=== PATIENT | female | born 1990 | race Caucasian/White ===

== ENCOUNTER 2016-12-18 01:33 | Inpatient (IN) | payer OTHER ==
[~2016-12-18] VITALS: Ht 152.4 cm; Wt 55.6 kg
[~2016-12-18 01:33] MED LIST: FIORICET PO; PANT40TA3 PO; ZOF8 PO
[2016-12-18 03:05] VITALS: BP 113/57; PULSE 84; RESP 18
[2016-12-18 03:14] VITALS: BP 113/57; RESP 18
[2016-12-18] MEDS ORDERED: morphine 10 MG INJ IM PRN ×2 (03:30→11:30)
[2016-12-18] MEDS ORDERED: ACETAMINOPHEN 325 MG TAB PO PRN (03:30)
[2016-12-18] MEDS ORDERED: ONDANSETRON 4 MG INJ IV PRN (03:30)
[2016-12-18 05:08] LABS: ADD SCAN DIFF NO
[2016-12-18] MEDS: SOD CHLORIDE 0.9% 1,000 ML IV SCH ×3 (05:08→23:30)
[2016-12-18 05:20] LABS: BASOPHILS % 0.2 % (0.0-2.0); EOSINOPHILS % 0.2 % (0.0-7.0); HEMOGLOBIN 11.8 g/dl (12.0-16.0); LYMPHOCYTES # 2.4 10^3/ul (0.8-2.9); LYMPHOCYTES % 14.5 % (15.0-51.0); MEAN CORPUSCULAR HEMOGLOBIN 30.4 pg (29.0-33.0); MEAN CORPUSCULAR HGB CONC 32.8 g/dl (32.0-37.0); MEAN CORPUSCULAR VOLUME 92.8 fl (82.0-101.0); MEAN PLATELET VOLUME 9.8 fl (7.4-10.4); MONOCYTE # 0.7 10^3/ul (0.3-0.9); MONOCYTES % 4.1 % (0.0-11.0); NEUTROPHILS % 80.5 % (39.0-77.0); PLATELET COUNT 295 10^3/UL (140-415); RED BLOOD COUNT 3.88 10^6/ul (4.20-5.40); RED CELL DISTRIBUTION WIDTH 11.9 % (11.5-14.5); WHITE BLOOD COUNT 16.2 10^3/ul (4.8-10.8)
[2016-12-18 05:21] LABS: ALBUMIN 3.4 g/dl (3.3-4.9)
[2016-12-18 05:22] LABS: POTASSIUM 3.8 mmol/L (3.5-5.1)
[2016-12-18 05:24] LABS: BILIRUBIN,INDIRECT 0.4 mg/dl (0-1.1); BILIRUBIN,TOTAL 0.4 mg/dl (0.2-1.3); CREATININE 0.53 mg/dl (0.44-1.00)
[2016-12-18 05:25] LABS: ALBUMIN/GLOBULIN RATIO 1.06; CALCIUM 8.3 mg/dl (8.4-10.2); PHOSPHORUS 3.7 mg/dl (2.5-4.9); TOTAL PROTEIN 6.6 g/dl (6.1-8.1)
[2016-12-18 05:26] LABS: MAGNESIUM 1.9 mg/dl (1.7-2.5)
[2016-12-18 07:00] VITALS: BP 150/78; RESP 20
--- NOTE | 2016-12-18 08:46 | HP ---
DATE OF ADMISSION: 12/18/2016 TIME SEEN: 5 a.m. CHIEF COMPLAINT: Abdominal pain and bright red blood per rectum. HISTORY OF PRESENT ILLNESS: The patient is a 26-year-old female with a history of possible asthma a nd migraine who was transferred from [place] because of insurance reasons after she presented with ab dominal pain and bright red blood per rectum. She said rectal bleeding has been going on for 1 jim h and mainly is noticed when she wipes, but at times she did actually see some dripping of blood. S he is not quite sure whether or not she has hemorrhoids, but she said it does hurt when she actually wipes. As far as her abdominal pain is concerned, she stated it started while she was at work yest erday around 6 p.m. and it is diffuse with radiation to her right flank area. However, when she howard ched her left side of her flank area, it hurt as well. She denied any fever, chills, nausea, vomiti ng, chest pain or shortness of breath. She states that she has a strong family history of a differe nt types of cancer including a cousin in her 20s with breast cancer, another cousin 9-year-old with leukemia, her aunt in her 30s with colon cancer and so on. When the patient was at [place] they did do a guaiac which was negative. She had a white count of 18 ,000 and her urinalysis was consistent with a UTI and she was subsequently diagnosed with pyelonephr itis. Imaging was done and it did not show any kidney stones. REVIEW OF SYSTEMS: A 12-point review of systems was performed and it was negative except as mentione d in HPI. PAST MEDICAL HISTORY: As per HPI. PAST SURGICAL HISTORY: . SOCIAL HISTORY: Denied a history of tobacco, alcohol or illicit drug use. ALLERGIES: NO KNOWN DRUG ALLERGIES. HOME MEDICATIONS: 1. Fioricet. 2. Zofran. 3. Protonix. PHYSICAL EXAMINATION: VITAL SIGNS: Stable. GENERAL: No acute distress. She actually looks very comfortable and answering questions appropriat yasmeen. HEENT: No obvious head deformity. Pupils equal, round and reactive to light. Extraocular muscles in tact. CARDIOVASCULAR: Regular rate and rhythm. No extra sounds. LUNGS: Clear. ABDOMEN: Soft. There is some tenderness in the left flank area with no guarding. Her abdomen is s oft. No rigidity was positive bowel sounds. EXTREMITIES: No edema. NEUROLOGIC: No focal deficits. LABORATORY DATA: Here shows a WBC of 16,000 and hemoglobin 11.8. Otherwise, CBC and CMP are within normal limits. Urinalysis, urine culture as well as blood culture are currently pending. IMPRESSION: 1. Pyelonephritis. 2. Leukocytosis, secondary to above. 3. Bright red blood per rectum. 4. Normocytic anemia, likely secondary to above. PLAN: She will be started on antibiotics. We will follow up on the urine culture and blood culture results. We will provide pain medication as needed. For her rectal bleeding we will consult GI. We will check ferritin and iron profile to see if she is iron deficient. Further workup and management per clinical course. Dictated By: EVARISTO HEART/BLUE Conf#: [id number] DID#: [id number]
[2016-12-18] MEDS: CEFEPIME 1GM/50 ML (PMX) 50 ML IVPB SCH ×2 (09:42→20:52)
--- NOTE | 2016-12-18 14:16 | CONS ---
Date/Time of Note Date/Time of Note DATE: 12/18/16 TIME: 13:57 Assessment/Plan Assessment/Plan Additional Assessment/Plan Assessment * Anemia Normocytic Hematochezia Hemorrhoids vs tumors vs Diverticulosis * Family history of colon cancer * Acute pyelonephritis * Plan * Colonoscopy risks and benefit explained to the patient ,agreed with planned procedure * Continue present management Consultation Date/Type/Reason Admit Date/Time Dec 18, 2016 at 02:51 Date of Consultation: Dec 18, 2016 Type of Consultation: Gastroenterology Reason for Consultation Hematochezia Referring Provider: EVARISTO CUEVAS MD Hx of Present Illness 26 year old complaining of hematochezia and right lower quadrant pain.Past medical history revealed Asthma and migraine.Condition started 2months prior to consult as hematochezia 1/2 tsp per bout with constipation but denies any nausea ,vomiting nor abdominal pain.condition continued on and off until 2 weeks prior to consult hematochezia become worse occurring everyday 1 tsp/bout .No consultation nor medications taken until 1 day prior to consult,she complained sudden onset right lower quadrant pain radiating to the back with associated dysuria.Patient was subsequently rushed to [facility] where a CT scan revealed a dilated right kidney and ureter and urinalysis showed pus cells.She was subsequently transferred because of insurance issues. On the floor ,no episode of hematochezia,denies abdominal pain,wbc is elevated at 16.2 ,predominant neutrophilia,hemoglobin 11.8 Patient claims also a family hx of colon cancer,but no colonoscopy performed Constitutional: improved, no complaints Eyes: no complaints ENT: no complaints Respiratory: no complaints Cardiovascular: no complaints Gastrointestinal: blood, constipation, pain, passing stool Genitourinary: flank pain Musculoskeletal: no complaints Skin: no complaints Neurologic: no complaints Endocrine: no complaints Lymphatic: no complaints Psychological: nl mood/affect, no complaints Immunologic: no complaints Past Medical History Medical History: other (asthma,migraine) Past Surgical History Past Surgical Hx: cholecystectomy Family History Significant Family History: other (colon cancer) Social History Alcohol Use: rarely Smoking Status: Never smoker Drug Use: none Exam/Review of Systems Vital Signs Vitals Vital Signs Date Time Temp Pulse Resp B/P Pulse Ox O2 Delivery O2 Flow Rate FiO2 12/18/16 07:00 97.7 62 20 150/78 95 12/18/16 03:05 Room Air Exam Constitutional: alert, oriented, well developed Psych: nl mood/affect, no complaints Head: atraumatic, normocephalic Eyes: PERRL, nl conjunctiva, nl lids, nl sclera ENMT: nl external ears & nose Neck: non-tender, supple Respiratory: clear to auscultation, normal air movement Cardiovascular: nl pulses, regular rate and rhythm Gastrointestinal: bowel sounds, nl liver, spleen, non-tender, soft, No rebound or guarding Musculoskeletal: nl extremities to inspection, nl gait and stance Extremities: normal pulses Neurological: HIGHWALL [employer] II-XII intact, nl mental status, nl speech, nl strength Skin: nl turgor, No rash or lesions Lymph: nl lymph nodes Results Result Diagram: 12/18/1640912/18/16409 Results 24 hrs Laboratory Tests Test 12/18/16 04:10 12/18/16 13:25 White Blood Count 16.2 #H Red Blood Count 3.88 L Hemoglobin 11.8 L Hematocrit 36.0 L Mean Corpuscular Volume 92.8 Mean Corpuscular Hemoglobin 30.4 Mean Corpuscular Hemoglobin Concent 32.8 Red Cell Distribution Width 11.9 Platelet Count 295 Mean Platelet Volume 9.8 Neutrophils % 80.5 H Lymphocytes % 14.5 L Monocytes % 4.1 Eosinophils % 0.2 Basophils % 0.2 Nucleated Red Blood Cells % 0.0 Neutrophils # 13.0 H Lymphocytes # 2.4 Monocytes # 0.7 Eosinophils # 0.0 Basophils # 0.0 Nucleated Red Blood Cells # 0.0 Sodium Level 138 Potassium Level 3.8 Chloride Level 104 Carbon Dioxide Level 24 Anion Gap 14 Blood Urea Nitrogen 9 Creatinine 0.53 Glucose Level 94 Calcium Level 8.3 L Phosphorus Level 3.7 Magnesium Level 1.9 Total Bilirubin 0.4 Direct Bilirubin 0.00 Indirect Bilirubin 0.4 Aspartate Amino Transf (AST/SGOT) 18 Alanine Aminotransferase (ALT/SGPT) 26 Alkaline Phosphatase 46 Total Protein 6.6 Albumin 3.4 Globulin 3.20 Albumin/Globulin Ratio 1.06 Hemoglobin A1c 5.1 Medications Medications Current Medications Cefepime HCl (Maxipime 1gm/50 ml (Pmx)) 50 ml @ 100 mls/hr Q12 IVPB Last administered on 12/18/16t 09:42; Admin Dose 100 MLS/HR; Start 12/18/16 at 09:00 Acetaminophen (Tylenol Tab) 650 mg Q6H PRN PO PAIN AND OR ELEVATED TEMP; Start 12/18/16 at 03:30 Ondansetron HCl 4 mg 4 mg Q6H PRN IV NAUSEA AND/OR VOMITING; Start 12/18/16 at 03:30 Sodium Chloride (NS) 1,000 ml @ 100 mls/hr Q10H IV Last administered on t 05:08; Admin Dose 100 MLS/HR; Start 12/18/16 at 03:30 Morphine Sulfate (morphine) 2 mg Q4H PRN IM pain; Start 12/18/16 at 11:30 Pantoprazole (Protonix Tab) 40 mg DAILY@06 PO ; Start 12/19/16 at 06:00 MICKY PEDRAZA MD Dec 18, 2016 14:08
[2016-12-18 14:26] LABS: ADD UMIC YES; URINE BILIRUBIN (Dip) NEGATIVE (NEGATIVE); URINE BLOOD (Dip) TRACE (NEGATIVE); URINE COLOR LT. YELLOW (YELLOW); URINE GLUCOSE (Dip) NEGATIVE (NEGATIVE); URINE KETONES (Dip) NEGATIVE (NEGATIVE); URINE LEUKOCYTE ESTERASE (Dip) 2+ (NEGATIVE); URINE NITRITE (Dip) NEGATIVE (NEGATIVE); URINE TOTAL PROTEIN (Dip) NEGATIVE (NEGATIVE); URINE UROBILINOGEN (Dip) 0.2 E.U./dL (0.1-1.0)
[2016-12-18] MEDS ORDERED: BISACODYL (EC) 5 MG TAB PO ONE ×2 (14:30→15:00)
[2016-12-18 14:42] LABS: BACTERIA,URINE FEW
[2016-12-18 15:02] LABS: CHOL/HDL RATIO 3.2 RATIO
[2016-12-18] MEDS ORDERED: MAGNESIUM CITRATE 300 ML BTL PO ONE (17:30)
[2016-12-18] MEDS ORDERED: morphine 2 MG INJ IV PRN (18:00)
[2016-12-18] MEDS ORDERED: POLYETHYLENE GLYCOL 3350 119 GM POWDER PO ONE (18:30)
[2016-12-18 20:31] VITALS: BP 104/71; RESP 18
[2016-12-19] MEDS: SOD CHLORIDE 0.9% 1,000 ML IV SCH ×2 (05:06→18:40)
[2016-12-19] MEDS: PANTOPRAZOLE (EC) 40 MG TAB PO SCH (05:06)
[2016-12-19 05:49] LABS: ADD SCAN DIFF NO
[2016-12-19 05:58] LABS: BASOPHILS % 0.4 % (0.0-2.0); EOSINOPHILS # 0.2 10^3/ul (0.0-0.5); EOSINOPHILS % 2.3 % (0.0-7.0); HEMATOCRIT 34.8 % (37.0-47.0); HEMOGLOBIN 11.4 g/dl (12.0-16.0); LYMPHOCYTES # 3.2 10^3/ul (0.8-2.9); MEAN CORPUSCULAR HEMOGLOBIN 30.8 pg (29.0-33.0); MEAN CORPUSCULAR HGB CONC 32.8 g/dl (32.0-37.0); MEAN CORPUSCULAR VOLUME 94.1 fl (82.0-101.0); MEAN PLATELET VOLUME 9.9 fl (7.4-10.4); MONOCYTE # 0.5 10^3/ul (0.3-0.9); MONOCYTES % 5.6 % (0.0-11.0); NEUTROPHIL # 4.7 10^3/ul (1.6-7.5); NEUTROPHILS % 54.5 % (39.0-77.0); PLATELET COUNT 285 10^3/UL (140-415); WHITE BLOOD COUNT 8.6 10^3/ul (4.8-10.8)
[2016-12-19] MEDS ORDERED: POLYETHYLENE GLYCOL 3350 119 GM POWDER PO ONE ×2 (06:00→18:30)
[2016-12-19 06:08] LABS: POTASSIUM 3.7 mmol/L (3.5-5.1)
[2016-12-19 06:10] LABS: CREATININE 0.51 mg/dl (0.44-1.00)
[2016-12-19 06:11] LABS: CALCIUM 8.3 mg/dl (8.4-10.2)
[2016-12-19] MEDS ORDERED: BISACODYL (EC) 5 MG TAB PO ONE ×2 (08:00)
[2016-12-19] MEDS: CEFEPIME 1GM/50 ML (PMX) 50 ML IVPB SCH ×2 (08:39→20:21)
[2016-12-19 08:43] VITALS: BP 107/57; RESP 18
--- NOTE | 2016-12-19 15:25 | PN ---
Date/Time of Note Date/Time of Note DATE: 12/19/16 TIME: 15:22 Assessment/Plan VTE Prophylaxis VTE Prophylaxis Intervention: ambulation Lines/Catheters [facility] IV Urinary Cath still in place: No Assessment/Plan Assessment/Plan Anemia Normocytic Hematochezia Hemorrhoids vs tumors vs Diverticulosis * Family history of colon cancer * Acute pyelonephritis management per primary * Plan * Colonoscopy 12/20/2016 risks and benefit explained to the patient ,agreed with planned procedure * Continue present management Subjective 24 Hr Interval Summary Free Text/Dictation * Course reviewed wit RN * no hematochezia nor abdominal pain * on clear liquid,bowel preparation will be started Exam/Review of Systems Vital Signs Vitals Vital Signs Date Time Temp Pulse Resp B/P Pulse Ox O2 Delivery O2 Flow Rate FiO2 12/19/16 08:43 98.0 67 18 107/57 97 12/18/16 03:05 Room Air Intake and Output 12/18/16 12/18/16 12/19/16 15:00 23:00 07:00 Intake Total 300 ml 1970 ml 1600 ml Output Total 900 ml 1100 ml Balance 300 ml 1070 ml 500 ml Exam Constitutional: alert, oriented Psych: no complaints Head: normocephalic Eyes: PERRL, nl conjunctiva, nl sclera Neck: non-tender, supple Respiratory: clear to auscultation, normal air movement Cardiovascular: nl pulses, regular rate and rhythm Gastrointestinal: bowel sounds, non-tender, soft Musculoskeletal: nl extremities to inspection, nl gait and stance Extremities: normal pulses Neurological: nl mental status, nl speech Results Result Diagram: 12/19/16 0455 12/19/16 0455 Results 24 hrs Laboratory Tests Test 12/19/16 04:55 White Blood Count 8.6 # Red Blood Count 3.70 L Hemoglobin 11.4 L Hematocrit 34.8 L Mean Corpuscular Volume 94.1 Mean Corpuscular Hemoglobin 30.8 Mean Corpuscular Hemoglobin Concent 32.8 Red Cell Distribution Width 12.0 Platelet Count 285 Mean Platelet Volume 9.9 Neutrophils % 54.5 Lymphocytes % 37.0 Monocytes % 5.6 Eosinophils % 2.3 Basophils % 0.4 Nucleated Red Blood Cells % 0.0 Neutrophils # 4.7 Lymphocytes # 3.2 H Monocytes # 0.5 Eosinophils # 0.2 Basophils # 0.0 Nucleated Red Blood Cells # 0.0 Sodium Level 139 Potassium Level 3.7 Chloride Level 108 Carbon Dioxide Level 23 Anion Gap 12 Blood Urea Nitrogen 7 Creatinine 0.51 Glucose Level 81 Calcium Level 8.3 L Medications Medications Current Medications Cefepime HCl (Maxipime 1gm/50 ml (Pmx)) 50 ml @ 100 mls/hr Q12 IVPB Last administered on 12/19/16 08:39; Admin Dose 100 MLS/HR; Start 12/18/16 at 09:00 Acetaminophen (Tylenol Tab) 650 mg Q6H PRN PO PAIN AND OR ELEVATED TEMP; Start 12/18/16 at 03:30 Ondansetron HCl 4 mg 4 mg Q6H PRN IV NAUSEA AND/OR VOMITING Last administered on 12/19/16 10:33; Admin Dose 4 MG; Start 12/18/16 at 03:30 Sodium Chloride (NS) 1,000 ml @ 100 mls/hr Q10H IV Last administered on 05:06; Admin Dose 100 MLS/HR; Start 12/18/16 at 03:30 Pantoprazole (Protonix Tab) 40 mg DAILY@06 PO Last administered on 12/19/16 05 :06; Admin Dose 40 MG; Start 12/19/16 at 06:00 Magnesium Citrate (Citroma) 300 ml ONCE ONCE PO ; Start 12/19/16 at 17:30; Stop 12/19/16 at 17:31 Polyethylene Glycol (Miralax) 119 gm ONCE ONCE PO ; Start 12/19/16 at 18:30; Stop 12/19/16 at 18:31 Morphine Sulfate (morphine) 2 mg Q4H PRN IV pain Last administered on 18:07; Admin Dose 2 MG; Start 12/18/16 at 18:00 MICKY PEDRAZA MD Dec 19, 2016 15:25
[2016-12-19] MEDS ORDERED: MAGNESIUM CITRATE 300 ML BTL PO ONE (17:30)
[2016-12-19 20:24] VITALS: BP 120/62; RESP 18
[2016-12-19 20:26] VITALS: BP 159/78; RESP 18
[2016-12-20] VITALS (8 sets, daily range): BP systolic 107–128; BP diastolic 51–76; PULSE 72–86; RESP 17–24
[2016-12-20] MEDS: SOD CHLORIDE 0.9% 1,000 ML IV SCH ×2 (05:15→18:09)
[2016-12-20] MEDS: PANTOPRAZOLE (EC) 40 MG TAB PO SCH (05:16)
[2016-12-20 05:19] LABS: ADD SCAN DIFF NO
[2016-12-20 05:22] LABS: BASOPHILS % 0.4 % (0.0-2.0); EOSINOPHILS # 0.1 10^3/ul (0.0-0.5); EOSINOPHILS % 1.4 % (0.0-7.0); HEMATOCRIT 36.9 % (37.0-47.0); HEMOGLOBIN 12.3 g/dl (12.0-16.0); LYMPHOCYTES # 2.8 10^3/ul (0.8-2.9); LYMPHOCYTES % 35.6 % (15.0-51.0); MEAN CORPUSCULAR HGB CONC 33.3 g/dl (32.0-37.0); MEAN CORPUSCULAR VOLUME 92.9 fl (82.0-101.0); MEAN PLATELET VOLUME 9.7 fl (7.4-10.4); MONOCYTE # 0.4 10^3/ul (0.3-0.9); MONOCYTES % 5.5 % (0.0-11.0); NEUTROPHIL # 4.5 10^3/ul (1.6-7.5); PLATELET COUNT 311 10^3/UL (140-415); RED BLOOD COUNT 3.97 10^6/ul (4.20-5.40); RED CELL DISTRIBUTION WIDTH 11.7 % (11.5-14.5); WHITE BLOOD COUNT 7.9 10^3/ul (4.8-10.8)
[2016-12-20 05:29] LABS: POTASSIUM 3.9 mmol/L (3.5-5.1)
[2016-12-20 05:31] LABS: CREATININE 0.56 mg/dl (0.44-1.00)
[2016-12-20 05:32] LABS: CALCIUM 8.6 mg/dl (8.4-10.2)
[2016-12-20] MEDS ORDERED: POLYETHYLENE GLYCOL 3350 119 GM POWDER PO ONE (06:00)
--- NOTE | 2016-12-20 07:50 | PN ---
DATE: 12/19/2016 SUBJECTIVE: The patient has some nausea symptoms, but no upper or lower GI bleeding. Seen by the G I team. OBJECTIVE: VITAL SIGNS: Stable. GENERAL: The patient is lying in bed, answering questions appropriately, in no acute distress. HEENT: Pupils are equal, round and react to light. Extraocular muscles are intact. NECK: Supple. No thyromegaly. LUNGS: Clear to auscultation bilaterally. CARDIOVASCULAR: S1, S2 heard. No rubs or gallops. ABDOMEN: Soft, nontender, nondistended. Normal bowel sounds. No rebound or guarding. MUSCULOSKELETAL: No lower extremity edema bilaterally. NEUROLOGIC: No focal deficits. LABORATORY: Basic metabolic panel was normal. CBC is normal, including a normal white blood cell c ount. ASSESSMENT AND PLAN: A 26-year-old female with possible asthma, who came in with abdominal pain, br ight red blood per rectum and pyelonephritis. 1. Abdominal pain. Again, appreciate GI consult. The patient is having bright red blood per rectu m. Plan is for a colonoscopy either later today or tomorrow. Continue the current management, pain control medication and IV fluids. The patient will be on a clear liquid diet. 2. Bright red blood per rectum Again, hemoglobin is stable. Again, a colonoscopy tomorrow. Monito r CBC daily. 3. Pyelonephritis. Again, follow up final urine culture results. For now continue antibiotics. 4. Gastrointestinal prophylaxis. PPI. 5. Deep venous thrombosis prophylaxis. SCDs. Dictated By: MACIEJ DE LA PAZ Conf#: [id number] DID#: [id number]
[2016-12-20] MEDS ORDERED: BISACODYL (EC) 5 MG TAB PO ONE (08:00)
[2016-12-20] MEDS: CEFEPIME 1GM/50 ML (PMX) 50 ML IVPB SCH (09:31)
--- NOTE | 2016-12-20 11:51 | PN ---
Date/Time of Note Date/Time of Note DATE: 12/20/16 TIME: 11:48 Assessment/Plan VTE Prophylaxis VTE Prophylaxis Intervention: SCD's Lines/Catheters [facility] Type (from [facility] Peripheral IV Urinary Cath still in place: No Assessment/Plan Chief Complaint/Hosp Course ASSESSMENT AND PLAN: 26-year-old female with possible asthma, who came in with abdominal pain, bright red blood per rectum and pyelonephritis. 1. Abdominal pain. Again, appreciate GI consult. The patient p/w bright red blood per rectum. - Plan is for a colonoscopy today, f/u GI rec's - Continue the current management, pain control medication and IV fluids. 2. Bright red blood per rectum Again, hemoglobin is stable. - Again, a colonoscopy today - Monitor CBC daily. 3. Pyelonephritis. Again, follow up final urine culture results. For now continue antibiotics. 4. Gastrointestinal prophylaxis. PPI. 5. Deep venous thrombosis prophylaxis - SCDs Problems: Subjective 24 Hr Interval Summary Free Text/Dictation Pt had one small blood streaked stool yesterday, but otherwise no acute events overnight. Exam/Review of Systems Vital Signs Vitals Vital Signs Date Time Temp Pulse Resp B/P Pulse Ox O2 Delivery O2 Flow Rate FiO2 12/20/16 07:52 98.1 75 18 121/76 98 12/18/16 03:05 Room Air Intake and Output 12/19/16 12/19/16 12/20/16 15:00 23:00 07:00 Intake Total 50 ml 50 ml 1450 ml Balance 50 ml 50 ml 1450 ml Exam GENERAL: The patient is lying in bed, answering questions appropriately, in no acute distress. HEENT: Pupils are equal, round and react to light. Extraocular muscles are intact. NECK: Supple. No thyromegaly. LUNGS: Clear to auscultation bilaterally. CARDIOVASCULAR: S1, S2 heard. No rubs or gallops. ABDOMEN: Soft, nontender, nondistended. Normal bowel sounds. No rebound or guarding. MUSCULOSKELETAL: No lower extremity edema bilaterally. NEUROLOGIC: No focal deficits. Results Result Diagram: 12/20/16 0435 12/20/16 0435 Results 24 hrs Laboratory Tests Test 12/20/16 04:35 12/20/16 06:45 White Blood Count 7.9 Red Blood Count 3.97 L Hemoglobin 12.3 Hematocrit 36.9 L Mean Corpuscular Volume 92.9 Mean Corpuscular Hemoglobin 31.0 Mean Corpuscular Hemoglobin Concent 33.3 Red Cell Distribution Width 11.7 Platelet Count 311 Mean Platelet Volume 9.7 Neutrophils % 57.0 Lymphocytes % 35.6 Monocytes % 5.5 Eosinophils % 1.4 Basophils % 0.4 Nucleated Red Blood Cells % 0.0 Neutrophils # 4.5 Lymphocytes # 2.8 Monocytes # 0.4 Eosinophils # 0.1 Basophils # 0.0 Nucleated Red Blood Cells # 0.0 Sodium Level 141 Potassium Level 3.9 Chloride Level 108 Carbon Dioxide Level 21 Anion Gap 16 Blood Urea Nitrogen 5 L Creatinine 0.56 Glucose Level 68 #L Calcium Level 8.6 Bedside Glucose 75 Medications Medications Current Medications Cefepime HCl (Maxipime 1gm/50 ml (Pmx)) 50 ml @ 100 mls/hr Q12 IVPB Last administered on 12/20/16 09:31; Admin Dose 100 MLS/HR; Start 12/18/16 at 09:00 Acetaminophen (Tylenol Tab) 650 mg Q6H PRN PO PAIN AND OR ELEVATED TEMP; Start 12/18/16 at 03:30 Ondansetron HCl 4 mg 4 mg Q6H PRN IV NAUSEA AND/OR VOMITING Last administered on 12/19/16 10:33; Admin Dose 4 MG; Start 12/18/16 at 03:30 Sodium Chloride (NS) 1,000 ml @ 100 mls/hr Q10H IV Last administered on 05:15; Admin Dose 100 MLS/HR; Start 12/18/16 at 03:30 Pantoprazole (Protonix Tab) 40 mg DAILY@06 PO Last administered on 12/20/16 05 :16; Admin Dose 40 MG; Start 12/19/16 at 06:00 Morphine Sulfate (morphine) 2 mg Q4H PRN IV pain Last administered on 18:07; Admin Dose 2 MG; Start 12/18/16 at 18:00 MACIEJ MEREDITH Dec 20, 2016 11:51
[2016-12-20] MEDS ORDERED: MIDAZOLAM 1 MG/ML 2 ML INJ ONE (15:58)
[2016-12-20] MEDS ORDERED: LIDOCAINE 2% (SDV) 5 ML INJ ONE (15:58)
[2016-12-20] MEDS ORDERED: PROPOFOL 20 ML ONE (15:58)
[2016-12-20] MEDS ORDERED: ONDANSETRON 4 MG INJ IV PRN (17:00)
--- NOTE | 2016-12-20 17:28 | GILP ---
DATE OF PROCEDURE: 12/20/2016 PROCEDURE: Colonoscopy to cecum. SURGEON: Micky Jones MD PREMEDICATION: Monitored anesthesia care by anesthesiologist. BRIEF HISTORY AND INDICATIONS: A patient with hematochezia. INSTRUMENT USED: Olympus colonoscope. PREPARATION: Adequate. TECHNIQUE: After informed consent, with the patient/relatives understanding the procedure, its indic ations potential risks and complications, including but not limited to: allergic reaction, bleeding, perforation, infection, missed lesions and after all pertinent questions were answered to the patie nt's satisfaction, the patient/relatives signed the witnessed informed consent. Following this, premedication was administered slowly IV push by under careful cardiovascular and re spiratory monitoring with pulse oximetry, automatic blood pressure and eeler. Once the sedativ e effect was achieved, the patient was placed in the left lateral decubitus position, digital rectal examination was performed. The colonoscope was then introduced and advanced under visual control th roughout all segments of the colon including: the rectum, sigmoid, descending colon, splenic flexure , transverse colon, hepatic flexure, ascending colon and finally reaching the cecum which was clearl y identified by transillumination, finger indentation and the ileocecal valve. Careful examination o f the mucosa of the lower gastrointestinal tract both on insertion as well as withdrawal of the inst rument disclosed the following findings: Rectal Examination: No evidence of perirectal disease, no masses. Colonic Mucosa: The colonic mucosa is unremarkable throughout. The ileocecal valve was clearly idania ntified and appears unremarkable. The instrument was withdrawn. On withdrawal of the instrument, n o additional abnormalities are noted with the exception of moderate-sized internal hemorrhoids. The instrument was then withdrawn, the patient tolerated the procedure well and was transferred out of the Endoscopy Suite awake and in good condition to continue recovery under observation. IMPRESSION: 1. Moderate-sized internal hemorrhoids, likely source of hematochezia. 2. Otherwise, normal colonic mucosa to cecum. PLAN: Conservative management of hemorrhoidal disease, stool softeners, i.e., MiraLax 17 grams stephan ly. Further recommendations will depend on patient's clinical course. Dictated By: MICKY JONES MS/NTS Conf#: [id number] DID#: [id number] CC: MICKY JONES;*EndCC*
--- NOTE | 2016-12-20 18:27 | PDOCDIS ---
Discharge Instructions CONDITION Patient Condition: Stable HOME CARE INSTRUCTIONS: Diet Instructions: Regular ACTIVITY: Activity Restrictions: Slowly Increase Activity Rest between Activity Bathing Restrictions: Shower FOLLOW UP/APPOINTMENTS Appointments Please take your medications as prescribed, see your doctor in the clinic in 1 week. MACIEJ MEREDITH Dec 20, 2016 18:27
[2016-12-20] MEDS ORDERED: POLY17PO6 GTB (18:28)
--- NOTE | 2016-12-20 19:45 | DS ---
DATE OF ADMISSION: 12/18/2016 DATE OF DISCHARGE: 12/20/2016 HOSPITAL COURSE: This is a 26-year-old female originally admitted on 12/18/2016, being discharged h ome on 12/20/2016. The patient came in with abdominal pain and bright red blood per rectum. She wa s admitted to med/surg floor. She did not require blood transfusion as her hemoglobin was stable. She had a leukocytosis which resolved within the first 24 hours of admission. Her cultures were neg ative as well. She was seen by GI team and underwent colonoscopy and there were findings of moderat e sized internal hemorrhoids, likely the source her hematochezia, otherwise normal colonic mucosa to the cecum. There was conservative management for her hemorrhoidal disease recommended including Mi raLax, which she got. The patient was able to ambulate and tolerate a p.o. diet. Her lower GI blee ding symptoms resolved. She will be discharged home today in improved condition. MEDICATIONS: She will go home with: 1. MiraLax 17 grams p.o. daily. 2. Fioricet q.4 hours p.r.n. 3. Zofran 4 mg q.6 p.r.n. 4. Protonix 40 mg daily. She will follow up with primary care doctor in the clinic in the next 1 to 2 weeks. FINAL DIAGNOSES: 1. Hematochezia, bright red blood per rectum secondary to internal hemorrhoids, status post colonos copy. 2. Asthma. 3. History of migraines. Time spent discharging patient 35 minutes. Dictated By: MACIEJ DE LA PAZ Conf#: [id number] DID#: [id number]
[2016-12-21] MEDS ORDERED: POLYETHYLENE GLYCOL 17 GM PACKET GTB SCH (09:00)
== END 2016-12-20 19:05 | disposition home or self-care (01) | DRG 394 ==
LOC: MS1 02:51
PROVIDERS: ADMIT Internal Medicine; ATTEND Internal Medicine
PROC: 0DJD8ZZ Inspection of Lower Intestinal Tract, Via Natural or Artificial Opening Endoscopic (ICD-10-PCS; principal; 2016-12-20 17:00)
DX: K64.8 Other hemorrhoids (principal); N10 Acute pyelonephritis; K62.5 Hemorrhage of anus and rectum; D72.829 Elevated white blood cell count, unspecified; D64.9 Anemia, unspecified
CPT/HCPCS: 80048; 80053; 80061; 81001; 81003; 82962; 83036; 83735; 84100; 84703; 85025; 87040; 87086; J0692; J2250; J2270; J2405; J7030